=== PATIENT | male | born 1990 | race Caucasian/White ===

== ENCOUNTER 2016-10-10 16:49 | Outpatient (CLI) | payer OTHER | END 2016-10-10 16:50 | disposition home or self-care (01) | DX: M51.27 Other intervertebral disc displacement, lumbosacral region (principal); M51.37 Other intervertebral disc degeneration, lumbosacral region ==

== ENCOUNTER 2016-10-12 17:26 | Emergency (ER) | payer OTHER ==
[2016-10-12] MEDS ORDERED: AMOX/CLAV 875 MG/125 MG TABLET PO STA (17:55)
[2016-10-12] MEDS ORDERED: AMOX/CLAV 875 MG/125 MG TABLET PO ONE (18:03)
== END 2016-10-12 18:19 | disposition home or self-care (01) ==
DX: S01.312A Laceration without foreign body of left ear, initial encounter (principal); S11.81XA Laceration without foreign body of other specified part of neck, initial encounter; W55.03XA Scratched by cat, initial encounter; Y93.K9 Activity, other involving animal care; R03.0 Elevated blood-pressure reading, without diagnosis of hypertension; F17.200 Nicotine dependence, unspecified, uncomplicated
CPT/HCPCS: 99283; A9270

== ENCOUNTER 2016-11-03 13:37 | Outpatient (CLI) | payer OTHER ==
[2016-11-03] MEDS ORDERED: LIDOCAINE 1% 50 ML MDV SUBQ ONE ×2 (14:35)
[2016-11-03] MEDS ORDERED: BUFFERED LIDOCAINE 10 ML SYRINGE IU ONE ×2 (14:35)
[2016-11-03] MEDS ORDERED: IOTHALAMATE MEGLUMINE 50 ML VIAL IVP ONE ×2 (14:35)
[2016-11-03] MEDS ORDERED: GADOPENTETATE DIMEGLUMINE 5 ML VIAL IVP ONE ×2 (14:35)
== END 2016-11-03 13:38 | disposition home or self-care (01) ==
DX: M25.551 Pain in right hip (principal); M25.552 Pain in left hip
CPT/HCPCS: 20610; 73722; 77002; Q9961

== ENCOUNTER 2016-11-10 13:24 | Outpatient (CLI) | payer OTHER ==
[2016-11-10] MEDS ORDERED: BUFFERED LIDOCAINE 10 ML SYRINGE IU ONE ×2 (14:31)
[2016-11-10] MEDS ORDERED: LIDOCAINE-MPF 1% 5 ML VIAL TD ONE ×2 (14:31)
[2016-11-10] MEDS ORDERED: IOTHALAMATE MEGLUMINE 50 ML VIAL IVP ONE ×2 (14:31)
[2016-11-10] MEDS ORDERED: GADOPENTETATE DIMEGLUMINE 5 ML VIAL IVP ONE ×2 (14:31)
== END 2016-11-10 13:25 | disposition home or self-care (01) ==
DX: M25.551 Pain in right hip (principal); M25.552 Pain in left hip
CPT/HCPCS: 20610; 73722; 77002; Q9961

== ENCOUNTER 2017-01-22 11:51 | Outpatient (CLI) | payer OTHER ==
[2017-01-22 12:21] LABS: BASOPHILS % (AUTO) 0.5 %; EOSINOPHILS # (AUTO) 0.1 10^3/uL (0.0-0.7); EOSINOPHILS % (AUTO) 1.8 %; HGB - HEMOGLOBIN 14.5 g/dL (14.0-18.0); LYMPHOCYTES # (AUTO) 2.3 10^3/uL (1.5-3.5); MEAN CORPUSCULAR HEMOGLOBIN 33.2 pg (27.0-31.0); MEAN CORPUSCULAR HGB CONC 33.8 g/dL (32.0-36.0); MEAN CORPUSCULAR VOLUME 98.4 fL (80.0-94.0); MEAN PLATELET VOLUME 7.9 fL (7.4-11.4); MONOCYTES # (AUTO) 0.6 10^3/uL (0.0-1.0); MONOCYTES % (AUTO) 8.4 %; NEUTROPHILS # (AUTO) 3.8 10^3/uL (1.5-6.6); NEUTROPHILS % (AUTO) 55.3 %; RED BLOOD COUNT 4.37 10^6/uL (4.70-6.10); RED CELL DISTRIBUTION WIDTH 13.7 % (12.0-15.0); UNCORRECTED WHITE BLOOD COUNT 6.9 x10^3/uL; WHITE BLOOD COUNT 6.9 x10^3/uL (4.8-10.8)
[2017-01-22 12:31] LABS: CALCIUM 9.7 mg/dL (8.5-10.3); POTASSIUM 3.9 mmol/L (3.5-5.0)
[2017-01-22 12:36] LABS: BILIRUBIN,URINE NEGATIVE (NEGATIVE); PH,URINE 5.5 PH (5.0-7.5)
[2017-01-22 13:25] LABS: UR CULTURE IF IND NOT INDICATED; WBC,URINE 0-3 /HPF (0-3)
== END 2017-01-22 11:52 | disposition home or self-care (01) ==
LOC: LAB 11:51
PROVIDERS: ATTEND Neurological Surgery
DX: M51.26 Other intervertebral disc displacement, lumbar region (principal)
CPT/HCPCS: 36415; 80048; 81001; 85025; 87086; 93005